=== PATIENT | male | born 1960 | race Caucasian/White ===

== ENCOUNTER 2016-11-05 07:11 | Day surgery (SDC) | payer BC ==
[~2016-11-05 07:11] MED LIST: ACETAMINOPHEN325 M2 PO; AMOXICILLIN875 MG PO; ASPIRIN325 MG PO; AUGMENTIN 875-1 EAC2 PO; CIPRODEX OTIC7.5 ML OT; CORTISPORIN EAR10 ML OT; ERYTHROMYCIN3.5 GM OP; FLOMAX0.4 M1 PO; IBUPROFEN800 M1 PO; KEPPRA500 M3 PO; LOW DOSE ASPIRI81 M3 PO; MULTIVITAMIN1 CAP PO; NORCO 5-325 TA1 EACH PO; TYLENOL500 MG PO; ZANAFLEX4 M2 PO; ZOFRAN ODT4 MG PO
== END 2016-11-05 13:22 ==
LOC: SRG 07:11 → SHSB 07:16 → ORE 09:08 → PACU 10:22 → SHSB 11:50
PROC: 09SM0ZZ Reposition Nasal Septum, Open Approach (ICD-10-PCS; principal; 2016-11-05)
PROC: 095L8ZZ Destruction of Nasal Turbinate, Via Natural or Artificial Opening Endoscopic (ICD-10-PCS; 2016-11-05)
DX: J34.2 Deviated nasal septum (principal); J34.3 Hypertrophy of nasal turbinates; J34.89 Other specified disorders of nose and nasal sinuses; F41.9 Anxiety disorder, unspecified; F32.9 Major depressive disorder, single episode, unspecified; G40.909 Epilepsy, unspecified, not intractable, without status epilepticus; Z87.891 Personal history of nicotine dependence; Z98.1 Arthrodesis status
CPT/HCPCS: J0171; J3010